=== PATIENT | female | born 1960 | race Caucasian/White ===

== ENCOUNTER 2017-02-24 05:08 | Day surgery (SDC) | payer OTHER ==
[~2017-02-24] VITALS: Ht 160 cm; Wt 59.0 kg
[~2017-02-24 05:08] MED LIST: AMBIEN10 MG PO; BENADRYL25 MG PO; NORVASC10 MG PO; TOPROL XL25 MG PO; XANAX1 MG PO
[2017-02-24 07:14] VITALS: BP 152/85
[2017-02-24 11:45] VITALS: BP 161/72
[2017-02-24 12:20] VITALS: BP 145/60
== END 2017-02-24 12:25 | disposition home or self-care (01) ==
LOC: SDC 05:08
DX: H25.21 Age-related cataract, morgagnian type, right eye (principal); H27.111 Subluxation of lens, right eye; I10 Essential (primary) hypertension; F17.200 Nicotine dependence, unspecified, uncomplicated; F32.9 Major depressive disorder, single episode, unspecified; Z88.2 Allergy status to sulfonamides; Z91.040 Latex allergy status
CPT/HCPCS: J0690; J1100; J2250; J2405; J2795; J3010; J3300

== ENCOUNTER 2017-04-14 06:46 | Day surgery (SDC) | payer OTHER ==
[~2017-04-14] VITALS: Ht 160 cm; Wt 63.0 kg
[2017-04-14 07:31] VITALS: BP 123/75
[2017-04-14 12:30] VITALS: BP 124/80
[2017-04-14 13:15] VITALS: BP 124/72
== END 2017-04-14 13:22 | disposition home or self-care (01) ==
LOC: SDC 06:46
DX: H43.01 Vitreous prolapse, right eye (principal); H26.101 Unspecified traumatic cataract, right eye; H27.01 Aphakia, right eye; I10 Essential (primary) hypertension; F41.9 Anxiety disorder, unspecified; Z88.2 Allergy status to sulfonamides; F17.210 Nicotine dependence, cigarettes, uncomplicated; Z86.73 Personal history of transient ischemic attack (TIA), and cerebral infarction without residual deficits
CPT/HCPCS: J0690; J1100; J2250; J2795; J3010; J7120